=== PATIENT | female | born 1935 | race Asian ===

== ENCOUNTER 2016-10-26 03:18 | Inpatient (IN) | payer OTHER, MEDICAID ==
[~2016-10-26] VITALS: Ht 157.5 cm; Wt 49.9 kg
[2016-10-26] VITALS (7 sets, daily range): BP systolic 105–123
[~2016-10-26 03:18] MED LIST: AMLO1TAB39 PO; CLOP75TA2 PO; ESOM40CA PO; ICOS1CAP PO; LIP20 PO; LIPA1CAP23 PO; MULT PO; RALO60TA PO; VIT1TABL94 PO
[2016-10-26] MEDS ORDERED: MULT PO (03:42)
[2016-10-26] MEDS ORDERED: ROSU10TA PO (03:42)
[2016-10-26] MEDS ORDERED: MECL12.584 PO (03:42)
[2016-10-26] MEDS ORDERED: TRIA1CAP53 PO (03:42)
[2016-10-26] MEDS ORDERED: CHOL500037 PO (03:42)
[2016-10-26 03:49] LABS: BILIRUBIN,URINE NEGATIVE (NEGATIVE); BLOOD, URINE NEGATIVE (NEGATIVE); CLARITY/URINE CLEAR (CLEAR); COLOR,URINE YELLOW (YELLOW); GLUCOSE,URINE NEGATIVE (NEGATIVE); KETONES,URINE NEGATIVE (NEGATIVE); LEUKOCYTE ESTERASE ,URINE NEGATIVE (NEGATIVE); NITRITE, URINE NEGATIVE (NEGATIVE); PH,URINE 6.5 (5.0-8.0); PROTEIN URINE NEGATIVE (NEGATIVE); UROBILINOGEN,URINE 0.2 (0.2-1.0)
[2016-10-26 04:09] LABS: BASOPHILS % (AUTO) 0.3 % (0.0-2.0); EOSINOPHILS # (AUTO) 0.1 K/uL (0.0-0.4); EOSINOPHILS % (AUTO) 1.2 % (0.0-4.0); HEMOGLOBIN 13.9 g/dL (12.0-16.0); LYMPHOCYTES # (AUTO) 1.1 K/uL (1.0-5.5); LYMPHOCYTES % (AUTO) 15.6 % (20.5-51.5); MEAN CORPUSCULAR HEMOGLOBIN 29 pg (27-31); MEAN CORPUSCULAR HGB CONC 33 % (32-36); MEAN CORPUSCULAR VOLUME 86 fL (79.0-98.0); MONOCYTES # (AUTO) 0.5 K/uL (0.0-1.0); MONOCYTES % (AUTO) 7.8 % (1.7-9.3); NEUTROPHILS # (AUTO) 5.1 K/uL (1.8-7.7); NEUTROPHILS % (AUTO) 75.1 % (40.0-70.0); PLATELET COUNT (AUTO) 262 K/uL (130-430); RED BLOOD CELL COUNT(AUTO) 4.87 MIL/uL (4.2-6.2); RED CELL DISTRIBUTION WIDTH 12.8 % (9.0-15.0); WHITE BLOOD COUNT (AUTO) 6.8 K/uL (4.8-10.8)
[2016-10-26 04:21] LABS: ANION GAP 5 (5-15); CHLORIDE 87 mmol/L (98-107); GLUCOSE 117 mg/dL (70-99); INR 0.9 (0.8-1.2); POTASSIUM 3.8 mmol/L (3.5-5.1); PROTHROMBIN TIME 10.2 SECS (9.5-12.5); SODIUM SERUM 121 mmol/L (136-145); UREA NITROGEN, BLOOD 19 mg/dL (8-21)
[2016-10-26 04:26] LABS: ALANINE AMINOTRANSFERASE 37 U/L (12-78); ALBUMIN 4.2 g/dL (3.4-4.8); ASPARTATE AMINOTRANSFERASE 32 U/L (10-37); LIPASE 160 U/L (73-393); TOTAL BILIRUBIN 2.1 mg/dL (0.0-1.0); TOTAL PROTEIN, SERUM 7.9 g/dL (6.4-8.3)
[2016-10-26] MEDS ORDERED: NS 500 ML IV ONE (04:45)
[2016-10-26] MEDS: NACL 0.9% 1,000 ML IV SCH ×2 (05:29→18:01)
[2016-10-26] MEDS: CHOLECALCIFEROL (VITAMIN D3) 2,000 UNIT TABLET PO SCH (09:45)
[2016-10-26] MEDS ORDERED: NON-FORMULARY MEDICATION (Esomeprazole Mag Trihydrate (Nexium) 40 MG) PO SCH (09:45)
[2016-10-26] MEDS ORDERED: ROSUVASTATIN CALCIUM 5 MG/TAB (CRESTOR) PO SCH (09:45)
[2016-10-26] MEDS ORDERED: cloNIDine HCL 0.1 MG TABLET PO PRN (09:45)
[2016-10-26] MEDS ORDERED: CHOLECALCIFEROL (VITAMIN D3) 2,000 UNIT TABLET PO ONE (14:15)
[2016-10-26] MEDS ORDERED: MULTIVITAMINS TAB 1 TABLET PO ONE (14:15)
[2016-10-26] MEDS ORDERED: PANTOPRAZOLE SODIUM 40 MG TAB PO ONE (14:15)
[2016-10-26] MEDS ORDERED: RALOXIFENE HCL 60 MG TABLET (EVISTA) PO ONE (14:15)
[2016-10-26] MEDS ORDERED: ATORVASTATIN 20 MG TABLET PO ONE (14:15)
[2016-10-26] MEDS: MECLIZINE HCL 25 MG TABLET (ANITVERT) PO SCH ×2 (15:00→21:00)
[2016-10-27 05:01] VITALS: BP_SYST 115
[2016-10-27] MEDS: NACL 0.9% 1,000 ML IV SCH (05:03)
[2016-10-27 07:47] LABS: BASOPHILS % (AUTO) 0.3 % (0.0-2.0); EOSINOPHILS % (AUTO) 0.6 % (0.0-4.0); HEMATOCRIT 38.5 % (36-48); HEMOGLOBIN 12.9 g/dL (12.0-16.0); LYMPHOCYTES # (AUTO) 1.1 K/uL (1.0-5.5); LYMPHOCYTES % (AUTO) 19.2 % (20.5-51.5); MEAN CORPUSCULAR HEMOGLOBIN 30 pg (27-31); MEAN CORPUSCULAR HGB CONC 33 % (32-36); MEAN CORPUSCULAR VOLUME 88 fL (79.0-98.0); MONOCYTES # (AUTO) 0.5 K/uL (0.0-1.0); MONOCYTES % (AUTO) 8.3 % (1.7-9.3); NEUTROPHILS # (AUTO) 4.1 K/uL (1.8-7.7); NEUTROPHILS % (AUTO) 71.6 % (40.0-70.0); PLATELET COUNT (AUTO) 207 K/uL (130-430); RED BLOOD CELL COUNT(AUTO) 4.37 MIL/uL (4.2-6.2); RED CELL DISTRIBUTION WIDTH 12.8 % (9.0-15.0); WHITE BLOOD COUNT (AUTO) 5.7 K/uL (4.8-10.8)
[2016-10-27 08:13] VITALS: BP_SYST 133
[2016-10-27 08:25] LABS: ALANINE AMINOTRANSFERASE 35 U/L (12-78); ALBUMIN 3.7 g/dL (3.4-4.8); ANION GAP 5 (5-15); ASPARTATE AMINOTRANSFERASE 25 U/L (10-37); BILIRUBIN,DIRECT 0.2 mg/dL (0.0-0.3); CALCIUM 8.8 mg/dL (8.4-11.0); CHLORIDE 102 mmol/L (98-107); CHOLESTEROL 140 mg/dL (<200); CREATININE 0.65 mg/dL (0.55-1.30); GLUCOSE 110 mg/dL (70-99); HDL CHOLESTEROL 68 mg/dL (>55); LDL CHOLESTEROL 53 mg/dL (<100); POTASSIUM 3.9 mmol/L (3.5-5.1); SODIUM SERUM 135 mmol/L (136-145); THYROID STIMULATING HORMONE 5.65 uIu/mL (0.34-4.82); TRIGLYCERIDES 37 mg/dL (30-150); UREA NITROGEN, BLOOD 17 mg/dL (8-21)
[2016-10-27] MEDS: MECLIZINE HCL 25 MG TABLET (ANITVERT) PO SCH (08:34)
[2016-10-27] MEDS: CHOLECALCIFEROL (VITAMIN D3) 2,000 UNIT TABLET PO SCH (08:34)
[2016-10-27] MEDS ORDERED: MULTIVITAMINS TAB 1 TABLET PO SCH (09:00)
[2016-10-27] MEDS ORDERED: RALOXIFENE HCL 60 MG TABLET (EVISTA) PO SCH (09:00)
[2016-10-27] MEDS ORDERED: CLOPIDOGREL BISULFATE 75 MG TABLET PO SCH (09:00)
[2016-10-27] MEDS ORDERED: ATORVASTATIN 20 MG TABLET PO SCH (09:00)
[2016-10-27] MEDS ORDERED: PANTOPRAZOLE SODIUM 40 MG TAB PO SCH (09:00)
[2016-10-27 09:47] VITALS: BP_SYST 133
== END 2016-10-27 10:30 | disposition home or self-care (01) | DRG 643 ==
LOC: SED 03:18 → STU 04:56
PROVIDERS: ADMIT Internal Medicine; ATTEND Internal Medicine
DX: E22.2 Syndrome of inappropriate secretion of antidiuretic hormone (principal); G93.41 Metabolic encephalopathy; R17 Unspecified jaundice; E78.5 Hyperlipidemia, unspecified; I25.10 Atherosclerotic heart disease of native coronary artery without angina pectoris; E87.79 Other fluid overload; R62.7 Adult failure to thrive; I10 Essential (primary) hypertension; E78.00 Pure hypercholesterolemia, unspecified; Z79.899 Other long term (current) drug therapy; Z90.710 Acquired absence of both cervix and uterus
CPT/HCPCS: 36415; 71010; 76700-TC; 80048; 80053; 80061; 80076; 81003; 83605; 83690-TC; 83735-TC; 83880; 84302-TC; 84443-TC; 84484; 85025; 85610-TC; 87040-TC; 93005; 96360; 99285; J7030; J7040; J8597

== ENCOUNTER 2019-08-06 21:00 | Emergency (ER) | payer OTHER, MEDICAID ==
[~2019-08-06] VITALS: Ht 162.6 cm; Wt 70.3 kg
[~2019-08-06 21:00] MED LIST changes: +CHOL500037 PO; -LIP20 PO; -LIPA1CAP23 PO; +MECL12.584 PO; +ROSU10TA2 PO; -VIT1TABL94 PO
[2019-08-06 21:52] VITALS: BP_SYST 151
--- NOTE | 2019-08-06 21:52 | NUR ---
Patient placed in bed 8.
--- NOTE | 2019-08-06 22:40 | NUR ---
Patient ambulated to bedside accompanied by son. Patient complains of generalized weakness with undefined pain. Denies shortness of breath.
--- NOTE | 2019-08-06 22:40 | NUR ---
md ABIMBOLA Olguin at bedside examining patient.
--- NOTE | 2019-08-06 22:54 | NUR ---
# 20 gauge angiocath placed to RAC. Use of asceptic technique. Opsite placed over site. Blood return noted. Blood and blood cultures for lab drawn from site. Flushed with 10 cc of normal saline. No evidence of infiltration noted. Patient tolerated well.
[2019-08-06 23:21] LABS: BASOPHILS % (AUTO) 0.2 % (0.0-2.0); EOSINOPHILS % (AUTO) 0.3 % (0.0-4.0); HEMATOCRIT 40.5 % (36-48); HEMOGLOBIN 13.7 g/dL (12.0-16.0); LYMPHOCYTES # (AUTO) 1.1 K/uL (1.0-5.5); LYMPHOCYTES % (AUTO) 15.7 % (20.5-51.5); MEAN CORPUSCULAR HEMOGLOBIN 30 pg (27-31); MEAN CORPUSCULAR HGB CONC 34 % (32-36); MEAN CORPUSCULAR VOLUME 88 fL (79.0-98.0); MONOCYTES # (AUTO) 0.5 K/uL (0.0-1.0); MONOCYTES % (AUTO) 6.8 % (1.7-9.3); NEUTROPHILS # (AUTO) 5.4 K/uL (1.8-7.7); PLATELET COUNT (AUTO) 231 K/uL (130-430); RED BLOOD CELL COUNT(AUTO) 4.61 MIL/uL (4.2-6.2); RED CELL DISTRIBUTION WIDTH 14.4 % (9.0-15.0)
[2019-08-06 23:28] LABS: ANION GAP 6 (5-15); CHLORIDE 97 mmol/L (98-107); CREATININE 0.63 mg/dL (0.55-1.30); GLUCOSE 144 mg/dL (70-99); POTASSIUM 4.2 mmol/L (3.5-5.1); SODIUM SERUM 134 mmol/L (136-145); UREA NITROGEN, BLOOD 9 mg/dL (8-21)
[2019-08-06 23:37] LABS: ALANINE AMINOTRANSFERASE 45 U/L (12-78); ALBUMIN 4.1 g/dL (3.4-4.8); ASPARTATE AMINOTRANSFERASE 23 U/L (10-37); LIPASE 127 U/L (73-393); TOTAL BILIRUBIN 1.3 mg/dL (0.0-1.0)
[2019-08-06 23:48] LABS: BILIRUBIN,URINE NEGATIVE (NEGATIVE); BLOOD, URINE NEGATIVE (NEGATIVE); CLARITY/URINE CLEAR (CLEAR); COLOR,URINE YELLOW (YELLOW); GLUCOSE,URINE NEGATIVE (NEGATIVE); KETONES,URINE NEGATIVE (NEGATIVE); LEUKOCYTE ESTERASE ,URINE NEGATIVE (NEGATIVE); NITRITE, URINE NEGATIVE (NEGATIVE); PROTEIN URINE NEGATIVE (NEGATIVE); UROBILINOGEN,URINE 0.2 (0.2-1.0)
[2019-08-07 02:30] VITALS: BP_SYST 151
--- NOTE | 2019-08-07 02:30 | NUR ---
Patient given written and verbal discharge instructions and verbalizes understanding. ER MD Olguin discussed with patient the results and treatment provided. Patient in stable condition. ID arm band removed. IV catheter removed intact and dressing applied, no active bleeding. Opportunity for questions provided and answered.
== END 2019-08-07 02:30 | disposition home or self-care (01) ==
LOC: SED 21:00
DX: R53.1 Weakness (principal); I10 Essential (primary) hypertension; E78.00 Pure hypercholesterolemia, unspecified; Z90.710 Acquired absence of both cervix and uterus; Z79.899 Other long term (current) drug therapy
CPT/HCPCS: 36415; 71045; 80053; 81003; 83690-TC; 84484; 85025; 93005; 99285

== ENCOUNTER 2021-07-02 18:24 | Emergency (ER) | payer OTHER, MEDICAID ==
[~2021-07-02] VITALS: Ht 157.5 cm; Wt 49.0 kg
[~2021-07-02 18:24] MED LIST changes: +MECL-225 PO; -MECL12.584 PO
[2021-07-02 18:37] VITALS: BP_SYST 161
--- NOTE | 2021-07-02 18:37 | NUR ---
Patient to ER bed 07 to gown for evaluation. Side rails up. Report given to GARCIA Baum
--- NOTE | 2021-07-02 18:41 | NUR ---
85 years old female walking to er with family c/o gen weakness denies headache, dizziness, nausea vomiting, abdominal pain constipation.
--- NOTE | 2021-07-02 18:49 | NUR ---
ER Dr. Ponce at bedside examining patient.
[2021-07-02 19:49] LABS: HEMOGLOBIN 12.4 g/dL (12.0-16.0)
[2021-07-02 19:56] LABS: BASOPHILS % (AUTO) 0.1 % (0.0-2.0); EOSINOPHILS # (AUTO) 0.1 K/uL (0.0-0.4); EOSINOPHILS % (AUTO) 0.6 % (0.0-4.0); HEMATOCRIT 37.2 % (36-48); LYMPHOCYTES % (AUTO) 9.8 % (20.5-51.5); MEAN CORPUSCULAR HEMOGLOBIN 28 pg (27-31); MEAN CORPUSCULAR HGB CONC 33 % (32-36); MEAN CORPUSCULAR VOLUME 84 fL (79.0-98.0); MONOCYTES # (AUTO) 0.7 K/uL (0.0-1.0); MONOCYTES % (AUTO) 7.3 % (1.7-9.3); NEUTROPHILS # (AUTO) 8.4 K/uL (1.8-7.7); NEUTROPHILS % (AUTO) 82.2 % (40.0-70.0); PLATELET COUNT (AUTO) 287 K/uL (130-430); RED BLOOD CELL COUNT(AUTO) 4.42 MIL/uL (4.2-6.2); RED CELL DISTRIBUTION WIDTH 14.4 % (9.0-15.0); WHITE BLOOD COUNT (AUTO) 10.2 K/uL (4.8-10.8)
[2021-07-02 19:59] LABS: ANION GAP 10 (5-15); CALCIUM 9.2 mg/dL (8.4-11.0); CHLORIDE 95 mmol/L (98-107); CREATININE 0.68 mg/dL (0.55-1.30); GLUCOSE 173 mg/dL (70-99); POTASSIUM 4.3 mmol/L (3.5-5.1); SODIUM SERUM 134 mmol/L (136-145); UREA NITROGEN, BLOOD 10 mg/dL (8-21)
--- NOTE | 2021-07-02 20:06 | NUR ---
PATIENT A/OX4, 02 SATURATION IS 100% ON ROOM AIR. PATIENT LYING IN BED WITH EYES OPEN, CHEST RISE AND FALL SYMMETRICAL, NO C/O PAIN OR S/S OR DISTRESS. PATIENT'S SON IS AT BEDSIDE, PATIENT AUTHORIZED HER SON TO BE AT BEDSIDE TO HELP TRANSLATE FOR HER. BED IN LOW AND LOCKED POSITION.
[2021-07-02 20:07] LABS: ALANINE AMINOTRANSFERASE 54 U/L (12-78); ASPARTATE AMINOTRANSFERASE 32 U/L (10-37); TOTAL BILIRUBIN 1.2 mg/dL (0.0-1.0)
[2021-07-02 21:25] VITALS: BP_SYST 126
--- NOTE | 2021-07-02 21:28 | NUR ---
PATIENT AND PATIENT'S SON VERBALIZED UNDERSTANDING OF AFTERCARE INSTRUTIONS. PATIENT LEFT WITH PATIENT'S BELONGINGS AND ALL AFTERCARE INSTRUCTIONS. PATIENT WALKS WITH STRONG GAIT.
== END 2021-07-02 21:25 | disposition home or self-care (01) ==
LOC: SED 18:24
DX: I10 Essential (primary) hypertension (principal); R53.1 Weakness; Z79.899 Other long term (current) drug therapy
CPT/HCPCS: 36415; 71045; 80053; 81002; 83880; 84484; 85025; 93005; 99285